=== PATIENT | male | born 1970 | race Caucasian/White ===

== ENCOUNTER 2018-03-03 09:21 | Emergency (ER) | payer OTHER, BC ==
[2018-03-03 09:33] VITALS: BP 125/74; PULSE 66; TEMP 97.6; BMI 27.2
--- NOTE | 2018-03-03 09:45 | PDOC ---
History of Present Illness - General Chief Complaint: Injury Stated Complaint: INJURY Time Seen by Provider: 03/03/18 09:33 History Source: Patient Exam Limitations: No Limitations - History of Present Illness Initial Comments: CHIEF COMPLAINT: 47 y/o male with cut to right lower leg sustained at work this morning. HISTORY OF PRESENT ILLNESS: The patient states he tripped over uneven ground and cut his right lower leg on metal this morning at work. He is UTD on tetanus. Vital signs on arrival are within normal limits REVIEW OF SYSTEMS: GENERAL/CONSTITUTIONAL: No fever/chills. No weakness. No weight change. MUSCULOSKELETAL: No joint or muscle swelling or pain. No neck or back pain. SKIN: +cut to right lower leg NEUROLOGIC: No headache, vertigo, loss of consciousness, or loss of sensation. PHYSICAL EXAM: GENERAL: The patient is awake, alert, and fully oriented, in no acute distress. He is well appearing and ambulatory with normal gait. HEAD: Normal with no signs of trauma. EXTREMITIES: Normal range of motion, no edema. NEUROLOGICAL: Normal speech, normal gait. CN II-XII grossly intact. SKIN: Abrasion to right distal lower leg, approximately 10cm in length x 1cm in width along distal tibia. Minimal bleeding. Nothing to suture. Past History - Past Medical History Allergies/Adverse Reactions: Allergies Allergy/AdvReac Type Severity Reaction Status Date / Time Penicillins Allergy Severe Hives Verified 03/03/18 09:32 envirnmental Allergy Uncoded 03/03/18 09:32 Home Medications: Ambulatory Orders NK [No Known Home Medication] 04/08/14 Anemia: No Asthma: No Cancer: No Cardiac Disorders: No CVA: No COPD: No CHF: No Dementia: No Diabetes: No GI Disorders: No Disorders: No HTN: No Hypercholesterolemia: No Liver Disease: No Seizures: No Thyroid Disease: No - Immunization History Td Vaccination: No - Suicide/Smoking/Psychosocial Hx Smoking Status: No Smoking History: Never smoked Number of Cigarettes Smoked Daily: 0 Hx Alcohol Use: No Drug/Substance Use Hx: No Substance Use Type: None Hx Substance Use Treatment: No *Physical Exam - Vital Signs Last Vital Signs Temp Pulse Resp BP Pulse Ox 97.6 F 66 18 125/74 98 03/03/18 09:32 03/03/18 09:32 03/03/18 09:32 03/03/18 09:32 03/03/18 09:32 Medical Decision Making - Medical Decision Making A/P: 47 y/o male with abrasion to RLE. Nothing to suture. Will clean, apply bacitracin and cover. Instructed patient to keep wound clean and dry. From prior ER records his last tetanus was in 2014. The patient verbalizes understanding of all instructions, has no further questions and is awaiting discharge. *DC/Admit/Observation/Transfer Diagnosis at time of Disposition: Abrasion of leg, right Qualifiers: Encounter type: initial encounter Qualified Code(s): S80.811A - Abrasion, right lower leg, initial encounter - Discharge Dispostion Disposition: HOME Condition at time of disposition: Improved - Referrals - Patient Instructions Printed Discharge Instructions: DI for Abrasion Additional Instructions: Discharge Instructions: -Keep wound clean, dry and covered -You were last given a tetanus shot in 2014. You are up to date. - Post Discharge Activity Forms/Work/School Notes: Back to Work
== END 2018-03-03 10:04 | disposition home or self-care (01) ==
LOC: JERFT 09:21
DX: S80.811A Abrasion, right lower leg, initial encounter (principal); W01.118A Fall on same level from slipping, tripping and stumbling with subsequent striking against other sharp object, initial encounter; Y93.89 Activity, other specified; Y92.89 Other specified places as the place of occurrence of the external cause; Y99.0 Civilian activity done for income or pay
CPT/HCPCS: 99281-25

== ENCOUNTER 2018-11-07 08:59 | Emergency (ER) | payer OTHER, BC | END 2018-11-07 11:58 | disposition home or self-care (01) | LOC: JERFT 08:59 ==

== ENCOUNTER 2020-05-07 19:20 | Emergency (ER) | payer BC ==
[2020-05-07 19:35] VITALS: BP 164/98; PULSE 70; TEMP 98.5; BMI 27.2
== END 2020-05-07 19:59 | disposition home or self-care (01) ==
LOC: JER 19:20
DX: R43.9 Unspecified disturbances of smell and taste (principal)
CPT/HCPCS: 99283-25; C9803; U0003

== ENCOUNTER 2022-07-09 06:23 | Emergency (ER) | payer OTHER, BC ==
[2022-07-09 06:33] VITALS: BP 133/84; PULSE 72; RESP 18; TEMP 97.8; BMI 25.9
[2022-07-09] MEDS ORDERED: ACETAMINOPHEN 500 MG TABLET (FP) PO ONE (07:40)
[2022-07-09] MEDS ORDERED: IBUPROFEN 600 MG TABLET (FP) PO ONE ×2 (07:40→07:42)
[2022-07-09] MEDS ORDERED: ACETAMINOPHEN 500 MG TABLET (FP) ONE (07:43)
== END 2022-07-09 09:14 | disposition home or self-care (01) ==
LOC: JER 06:23
DX: S22.42XA Multiple fractures of ribs, left side, initial encounter for closed fracture (principal); W01.0XXA Fall on same level from slipping, tripping and stumbling without subsequent striking against object, initial encounter
CPT/HCPCS: 71101-TC-LT-FY; 99283-25

== ENCOUNTER 2023-03-01 13:00 | Day surgery (SDC) | payer BC, OTHER ==
[2023-02-28 16:06] VITALS: BMI 25.9
[~2023-03-01 13:00] MED LIST: ACETAMINOPHEN 500 MG TABLET (FP) PO PRN
[2023-03-01 13:18] VITALS: RESP 18
[2023-03-01] MEDS ORDERED: DEXAMETHASONE SOD PHOSPHATE 10 MG/1 ML VIAL IM ONE ×2 (14:15)
[2023-03-01] MEDS ORDERED: LIDOCAINE HCL 1%, 10 MG/ML (50 mL VIAL) NR ONE ×2 (14:15)
[2023-03-01] MEDS ORDERED: IOHEXOL 180 MG/1 ML ML IJ ONE (14:15)
[2023-03-01 15:33] VITALS: BP 124/86; PULSE 61; TEMP 98.3
== END 2023-03-01 15:30 | disposition home or self-care (01) ==
LOC: JASU-SURG 13:00
PROVIDERS: ATTEND Pain Medicine Pain Medicine
PROC: 3E0R3BZ Introduction of Anesthetic Agent into Spinal Canal, Percutaneous Approach (ICD-10-PCS; 2023-03-01)
PROC: 3E0R33Z Introduction of Anti-inflammatory into Spinal Canal, Percutaneous Approach (ICD-10-PCS; principal; 2023-03-01 15:00)
DX: M54.16 Radiculopathy, lumbar region (principal)
CPT/HCPCS: 76000-TC-FY; J1100

== ENCOUNTER 2024-11-23 07:22 | Day surgery (SDC) | payer BC ==
[2024-11-23] MEDS ORDERED: LIDOCAINE HCL/PF 1% SDV 5ML VIAL ONE (07:41)
[2024-11-23] MEDS ORDERED: BUPIVACAINE HCL/PF 0.75% 10 ML VIAL ONE (07:41)
[2024-11-23] MEDS ORDERED: ACETAMINOPHEN 500 MG TABLET (FP) PO PRN (08:43)
[2024-11-23] MEDS: LIDOCAINE HCL 1% PRESERVATIVE FREE - 30ML VIAL IJ ONE (09:42)
[2024-11-23] MEDS: BUPIVACAINE HCL/PF 0.75% 10 ML VIAL NR ONE ×2 (09:46)
[2024-11-23 10:11] VITALS: BP 140/78; PULSE 64; RESP 20; TEMP 97.9
== END 2024-11-23 09:55 | disposition home or self-care (01) ==
LOC: JASU-SURG 07:22
PROVIDERS: ATTEND Pain Medicine Pain Medicine
PROC: 3E0T33Z Introduction of Anti-inflammatory into Peripheral Nerves and Plexi, Percutaneous Approach (ICD-10-PCS; 2024-11-23)
PROC: 3E0T3BZ Introduction of Anesthetic Agent into Peripheral Nerves and Plexi, Percutaneous Approach (ICD-10-PCS; principal; 2024-11-23 10:15)
DX: M47.816 Spondylosis without myelopathy or radiculopathy, lumbar region (principal)
CPT/HCPCS: 76000-TC-FY

== ENCOUNTER 2024-12-20 06:13 | Day surgery (SDC) | payer BC ==
[2024-12-20] MEDS ORDERED: ACETAMINOPHEN 500 MG TABLET (FP) PO PRN (09:06)
[2024-12-20] MEDS: LIDOCAINE HCL/PF 2% SDV 5ML VIAL INF ONE ×2 (12:54)
[2024-12-20] MEDS: DEXAMETHASONE SOD PHOSPHATE 10 MG/1 ML VIAL IVPUSH ONE (12:55)
[2024-12-20] MEDS: BUPIVACAINE HCL/PF 0.75% 10 ML VIAL NR ONE ×2 (12:55)
[2024-12-20] MEDS: LIDOCAINE HCL 1% PRESERVATIVE FREE - 30ML VIAL IJ ONE ×2 (12:55)
[2024-12-20 13:41] VITALS: RESP 18
[2024-12-20 13:52] VITALS: BP 128/82; PULSE 64; TEMP 97.8
== END 2024-12-20 13:27 | disposition home or self-care (01) ==
LOC: JASU-SURG 06:13
PROVIDERS: ATTEND Pain Medicine Pain Medicine
PROC: 015B3ZZ Destruction of Lumbar Nerve, Percutaneous Approach (ICD-10-PCS; principal; 2024-12-20 13:00)
DX: M47.816 Spondylosis without myelopathy or radiculopathy, lumbar region (principal)
CPT/HCPCS: 76000-TC-FY; J1100